=== PATIENT | female | born 1960 | race Caucasian/White ===

== ENCOUNTER 2020-12-15 06:38 | Day surgery (SDC) | payer OTHER ==
[2020-12-15] MEDS ORDERED: Sodium Chloride 0.9% 1,000 ML IV SCH (07:15)
[2020-12-15] MEDS ORDERED: fentaNYL 100 MCG/2 ML SDV ONE (07:48)
[2020-12-15] MEDS ORDERED: Propofol 200 MG/20 ML SDV ONE (07:49)
[2020-12-15] MEDS ORDERED: Midazolam 1 MG/ML 2 ML SDV ONE (07:49)
--- NOTE | 2020-12-15 11:17 | OR ---
DATE OF PROCEDURE: 12/15/2020 SURGEON: Florentino Lamb MD PROCEDURE: Colonoscopy. FINDINGS: Normal colonoscopy. COMPLICATIONS: None. BLOOD BANK COORDINATOR: None. ANESTHESIA: MAC. PREOPERATIVE DIAGNOSIS: Screening colonoscopy. POSTOPERATIVE DIAGNOSIS: Screening colonoscopy. RISKS: Risks, benefits, alternatives, and limitations including, but not limited to infection, bleeding, perforation, false positives, false negatives were explained to the patient and they wished to proceed. PROCEDURE IN DETAIL: The patient was placed in left lateral decubitus position. Digital rectal exam was performed without abnormality. Scope was introduced and advanced atraumatically to the ileocecal valve. A photo was taken. The scope was brought back to the ascending, transverse, descending colon, and retroflexed. No evidence of old or new blood. No masses. No polyps. No diverticulosis. No colitis. Greater than 8 minutes was spent removing the scope. Prep was acceptable, approximately 90% luminal surface could be seen. The patient tolerated the procedure well. The patient was recommended to have the colonoscopy in 10 years unless the patient develops family history, then 5. Florentino Lamb MD /[id number]
== END 2020-12-15 09:50 | disposition home or self-care (01) ==
LOC: JP.SDS 06:38
PROVIDERS: ATTEND Surgery
DX: Z12.11 Encounter for screening for malignant neoplasm of colon (principal); F41.9 Anxiety disorder, unspecified; Z88.8 Allergy status to other drugs, medicaments and biological substances
CPT/HCPCS: 45378; J2250; J2704; J3010; J7030